=== PATIENT | male | born 1985 | race Caucasian/White ===

== ENCOUNTER 2017-12-25 17:49 | Emergency (ER) | payer OTHER ==
[~2017-12-25] VITALS: Ht 157.5 cm; Wt 72.7 kg
[2017-12-25 18:53] VITALS: BP 140/76
[2017-12-25] MEDS ORDERED: DOXY100C2 PO (19:23)
== END 2017-12-25 19:29 | disposition home or self-care (01) ==
LOC: ER 17:49
DX: S61.217A Laceration without foreign body of left little finger without damage to nail, initial encounter (principal); F17.200 Nicotine dependence, unspecified, uncomplicated; W26.0XXA Contact with knife, initial encounter; Y93.89 Activity, other specified; Y92.89 Other specified places as the place of occurrence of the external cause; Y99.8 Other external cause status
CPT/HCPCS: 99283; A6449

== ENCOUNTER 2018-03-23 22:49 | Emergency (ER) | payer OTHER ==
[~2018-03-23] VITALS: Ht 157.5 cm; Wt 68.0 kg
[2018-03-24 01:59] VITALS: BP 115/84
== END 2018-03-24 02:01 ==
LOC: ER 22:49
DX: F15.10 Other stimulant abuse, uncomplicated (principal); T75.4XXA Electrocution, initial encounter; F17.200 Nicotine dependence, unspecified, uncomplicated
CPT/HCPCS: 99283

== ENCOUNTER 2022-07-18 15:55 | Emergency (ER) | payer MEDICAID ==
[~2022-07-18] VITALS: Ht 157.5 cm; Wt 68.0 kg
[2022-07-18 15:59] VITALS: BP 122/78
[2022-07-18] MEDS ORDERED: DOXYCYCLINE 100MG CAPSULE PO STA (17:34)
[2022-07-18] MEDS ORDERED: cephalexin 500mg capsule PO ONE (17:35)
[2022-07-18] MEDS ORDERED: TETanus/Pertussis (Acell)/Diphther VAC/PF (Tdap-Adult) 0.5ml syringe IMVAC ONE (17:35)
[2022-07-18] MEDS ORDERED: LIDOcaine 1% 30ml preserv. free vial IJ ONE (17:42)
[2022-07-18] MEDS ORDERED: CEPH500C2 PO (18:35)
[2022-07-18] MEDS ORDERED: DOXY100C76 PO (18:35)
== END 2022-07-18 19:02 | disposition home or self-care (01) ==
LOC: ER 15:56
DX: L02.413 Cutaneous abscess of right upper limb (principal)
CPT/HCPCS: 10060; 87070; 87077; 87186; 90471; 90715; 99284; A6258; A6449